=== PATIENT | female | born 1970 | race Caucasian/White ===

== ENCOUNTER → 2018-08-30 | Outpatient (CLI) | payer BC ==
--- NOTE | 2018-08-30 10:04 | KCIC ---
DATE: 08/30/2018 EXAM: MAMMO ELVIRA DIAG BILAT, BREAST BILATERAL HISTORY: Follow-up right breast nodules, left breast screening COMPARISON: 08/22/2017 This study was interpreted with the benefit of Computerized Aided Detection (CAD). Breast Density: HETERO The breast parenchyma is heterogenously dense, which could reduce sensitivity of mammography. Breast parenchyma level C. FINDINGS: 2-D routine and implant exclusion views as well as 3-D implant exclusion views of both breasts were obtained in the CC and MLO projections. There is an oval-shaped smooth nodule at the 12:30 location in the right breast. It currently measures 2.5 cm in greatest diameter compared to a measurement 1.8 cm on the previous study. A previous ultrasound exam suggests that this is a simple cyst. No other enlarging or new breast densities are seen. No suspicious microcalcifications are evident. Right breast ultrasound, 08/30/2018: A targeted ultrasound exam of the right breast was performed at the 12-1 o'clock location where abnormalities were defined on the study of 08/29/2017. At the 12:30 location approximately 4 cm from the nipple there is a simple appearing cyst measuring 23 x 10 x 19 mm. This was present on the previous study and has increased in size. At the 1:00 location approximately 3 cm from the nipple there is a small rounded hypoechoic nodule which was also visible on the previous study. It demonstrates low level internal echoes without demonstrable internal vascularity. It measures 4 mm and is of similar size and shape when compared to the previous study. This is probably a complicated cyst. A circumscribed malignancy is much less likely. On today's study an additional elongated hypoechoic nodule measuring 7 x 6 x 3 mm in diameter was identified at the 2:00 location, 5 cm in the nipple. Its margins are smooth. There are low level internal echoes without internal vascularity. This is probably a complicated cyst or fibroadenoma. An additional 4 mm smooth hypoechoic nodule was identified at the 12:00 location approximately 2 cm in the nipple. It demonstrates sonographic characteristics similar to the above described 1:00 nodule. IMPRESSION: 1. Enlarging simple cyst at the 12:30 location. 2. The small 1:00 hypoechoic nodule seen on the 08/29/2018 exam is unchanged and has a probably benign appearance. 3. Two additional small hypoechoic nodules at the 2:00 and 12:00 located indications described above are probably benign. 4. Follow-up right breast ultrasound in 6 months and bilateral mammography at one year is suggested. BI-RADS CATEGORY: 3 PROBABLY BENIGN FINDING(S)-SHORT INTERVAL FOLLOW-UP SUGGESTED RECOMMENDED FOLLOW-UP: 6M 6 MONTH FOLLOW-UP PQRS compliance statement: Patient information was entered into a reminder system with a target due date for the next mammogram. Mammography is a sensitive method for finding small breast cancers, but it does not detect them all and is not a substitute for careful clinical examination. A negative mammogram does not negate a clinically suspicious finding and should not result in delay in biopsying a clinically suspicious abnormality. "Our facility is accredited by the [employer] Mammography [employer]."
== END | disposition home or self-care (01) ==
LOC: MERGE 08:00 → KCIC MAMMO 08:03
PROVIDERS: ATTEND Family Medicine
DX: N60.01 Solitary cyst of right breast (principal); N63.12 Unspecified lump in the right breast, upper inner quadrant
CPT/HCPCS: 76641; 77066; G0279; 77062

== ENCOUNTER → 2019-03-06 | Outpatient (CLI) | payer BC ==
--- NOTE | 2019-03-06 13:56 | KCIC ---
Right breast ultrasound: Reason for examination: Follow-up exam for nodules. Comparison is made to previous studies dated 08/30/2018 and 08/29/2017. Ultrasound examination of the right breast and axilla was performed. There continues to be a small cystic lesion in the 12:00 position 2 cm from the nipple measuring 4.1 mm in greatest dimension. In the 12:30 position 4 cm from the nipple, there is a 2.1 cm simple cyst with an abutting focus of fibrocystic change measuring 5 mm in size. There also continues to be a small 4.7 mm hypoechoic lesion consistent with fibrocystic changes at the 1:00 position 3 cm from the nipple which shows no significant change. In the 2:00 position 5 cm from the nipple, there continues to be a small fibrocystic lesion measuring 7.8 mm in greatest dimension. In the 11:00 position 4 cm from the nipple, there is a 6.2 mm fibrocystic lesion. No suspicious nodules are seen. No abnormal appearing lymph nodes are seen in the right axilla. IMPRESSION: Continued presence of benign-appearing cystic and fibrocystic lesions without significant change. No suspicious lesion seen. Recommend routine mammographic follow-up. BI-RADS Category 2: Benign. "Our facility is accredited by the [employer] Mammography [employer]." This patient's information has been entered into a reminder system for the patient to be notified with the results of her examination and a target date for the next mammogram. Electronically signed by: Caroline Monterroso MD (03/06/2019 1:53 PM) [id number]
== END | disposition home or self-care (01) ==
LOC: KCIC US 09:39
PROVIDERS: ATTEND Family Medicine
DX: N64.89 Other specified disorders of breast (principal)
CPT/HCPCS: 76641

== ENCOUNTER → 2019-11-14 | Outpatient (CLI) | payer BC ==
--- NOTE | 2019-11-14 11:02 | KCIC ---
Bilateral digital screening mammograms with 3-D tomosynthesis: Reason for examination: Routine screening. Comparison is made to previous studies dated 08/30/2018 and 08/22/2017. Bilateral mammograms in CC and oblique projections were obtained with 2-D imaging and 3-D tomosynthesis imaging on a Siemens Inspiration unit and reviewed on the workstation. Interpretation was made with the benefit of CAD. The skin and nipples show no abnormalities. No abnormal axillary lymph nodes are seen. The breast parenchyma is heterogeneously dense. (Breast density: Category C.) There are no new dominant masses, suspicious calcifications or architectural distortion. Impression: No evidence of malignancy. Recommend routine screening. Your patient's mammogram demonstrates that she has dense breast tissue (breast density category C or D), which could hide abnormalities, and if she has other risk factors for breast cancer that have been identified, she might benefit from supplemental screening tests that may be suggested by you as her ordering physician. Dense breast tissue, in and of itself, is a relatively common condition. Therefore, this information is not provided to cause undue concern, but rather to raise your awareness and to promote discussion with your patient regarding the presence of other risk factors, in addition to dense breast tissue. Your patient's mammography results will be sent to her. BI-RAD Category 2: Benign. "Our facility is accredited by the [employer] Mammography [employer]." This patient's information has been entered into a reminder system for the patient to be notified with the results of her examination and a target date for the next mammogram. Electronically signed by: Caroline Monterroso MD (11/14/2019 10:59 AM) [id number]
== END | disposition home or self-care (01) ==
LOC: KCIC MAMMO 08:41
PROVIDERS: ATTEND Family Medicine
DX: Z12.31 Encounter for screening mammogram for malignant neoplasm of breast (principal)
CPT/HCPCS: 77063; 77067

== ENCOUNTER → 2021-09-21 | Outpatient (CLI) | payer BC ==
--- NOTE | 2021-09-21 15:01 | KCIC ---
EXAM: Pelvic sonogram. HISTORY: Pain. TECHNIQUE: Sonographic imaging the pelvis was performed. COMPARISON: None. FINDINGS: The uterus is normal in size. The endometrial stripe measures 4.2 mm in thickness. There is an IUD within the endometrial cavity. The ovaries are normal in size and demonstrate normal blood fl ow. There is no pelvic free fluid. The bladder is unremarkable. IMPRESSION: 1. IUD within the endometrial cavity. 2. Otherwise, unremarkable pelvic sonogram. Electronically signed by: Trinidad Alfaro MD (09/21/2021 2:59 PM) [id number]
== END ==
LOC: KCIC US 14:17
PROVIDERS: ATTEND Nurse Practitioner Family
DX: R10.2 Pelvic and perineal pain (principal); Z97.5 Presence of (intrauterine) contraceptive device
CPT/HCPCS: 76856